=== PATIENT | male | born 1970 | race Caucasian/White ===

== ENCOUNTER 2018-09-28 06:33 | Emergency (ER) | payer MEDICAID, OTHER ==
--- NOTE | 2018-09-28 08:20 | C.PDOC ---
History Of Present Illness 48 y/o male presents to the ED for evaluation of vomiting last night. He states after eating some pork last night, he had one episode of non-bloody vomiting. Patient notes he just got out of [employer] yesterday and had not eaten pork in a few years. PMHx is significant for psychiatric history, no prior abdominal surgeries. At present, patient is complaining of persistent nausea. No fevers, chills, abdominal pain, or urinary symptoms. Time Seen by Provider: 09/28/18 07:16 Chief Complaint (Nursing): GI Problem History Per: Patient History/Exam Limitations: no limitations Onset/Duration Of Symptoms: Hrs Current Symptoms Are (Timing): Still Present Associated Symptoms: Nausea, Vomiting Past Medical History Reviewed: Historical Data, Nursing Documentation, Vital Signs Vital Signs: Last Vital Signs Temp 98.3 F 09/28/18 06:38 Pulse 84 09/28/18 06:38 Resp 20 09/28/18 06:38 BP 137/88 09/28/18 06:38 Pulse Ox 99 09/28/18 06:38 - Medical History PMH: Anxiety, Depression, HTN, Post Traumatic Stress Disorder, Schizophrenia Family History: States: Unknown Family Hx - Social History Hx Tobacco Use: Yes Hx Alcohol Use: Yes Hx Substance Use: Yes - Immunization History Hx Tetanus Toxoid Vaccination: No Hx Influenza Vaccination: No Hx Pneumococcal Vaccination: No Review Of Systems Constitutional: Negative for: Fever, Chills Cardiovascular: Negative for: Chest Pain, Palpitations Respiratory: Negative for: Shortness of Breath Gastrointestinal: Positive for: Nausea, Vomiting. Negative for: Abdominal Pain, Diarrhea, Hematochezia, Hematemesis Neurological: Negative for: Weakness, Numbness, Dizziness Physical Exam - Physical Exam Appears: Well, Non-toxic, No Acute Distress Skin: Warm, Dry, No Rash Head: Atraumatic, Normacephalic Eye(s): bilateral: Normal Inspection, PERRL, EOMI Oral Mucosa: Moist Neck: Normal ROM Chest: Symmetrical Cardiovascular: Rhythm Regular, No Murmur Respiratory: Normal Breath Sounds, No Accessory Muscle Use Gastrointestinal/Abdominal: Bowel Sounds, Soft, No Tenderness, No Distention Extremity: Bilateral: Atraumatic, Normal Color And Temperature, Normal ROM Neurological/Psych: Oriented x3, Normal Speech ED Course And Treatment O2 Sat by Pulse Oximetry: 99 (RA) Pulse Ox Interpretation: Normal Progress Note: Treated with zofran and tylenol. On re-evaluation abdomen soft tolerating PO Reassessment Condition: Improved Medical Decision Making Medical Decision Making: Plan: - 975 mg PO Tylenol - 4 mg PO Zofran - Reeval after meds Disposition Counseled Patient/Family Regarding: Diagnosis, Need For Followup - Disposition Referrals: [facility] [Outside] [facility] [Outside] Disposition: HOME/ ROUTINE Disposition Time: 08:45 Condition: GOOD Additional Instructions: Follow up with your PMD or clinic for further evaluation Instructions: Nausea and Vomiting, Adult Forms: [employer] ([place]an) - POA Present On Arrival: None - Clinical Impression Clinical Impression: Nausea & vomiting - 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 - Scribe Statement The provider has reviewed the documentation as recorded by the Scribe Alix Jensen All medical record entries made by the Scribe were at my direction and personally dictated by me. I have reviewed the chart and agree that the record accurately reflects my personal performance of the history, physical exam, m edical decision making, and the department course for this patient. I have also personally directed, reviewed, and agree with the discharge instructions and disposition.
[2018-09-28 08:49] VITALS: BP 126/58; PULSE 69; RESP 17; TEMP 98.9
[2018-09-28 15:36] VITALS: O2SAT 99
== END 2018-09-28 08:49 | disposition home or self-care (01) ==
LOC: C.ER 06:33
DX: R11.2 Nausea with vomiting, unspecified (principal)